=== PATIENT | female | born 1995 | race Caucasian/White ===

== ENCOUNTER 2018-11-13 14:04 | Emergency (ER) | payer MEDICAID ==
[~2018-11-13] VITALS: Ht 152.4 cm; Wt 88.0 kg
[2018-11-13 14:28] VITALS: BP 130/81
== END 2018-11-13 17:50 | disposition left against medical advice (07) ==
LOC: ER 14:24
DX: R10.9 Unspecified abdominal pain (principal); Z53.21 Procedure and treatment not carried out due to patient leaving prior to being seen by health care provider

== ENCOUNTER 2020-03-03 16:14 | Emergency (ER) | payer MEDICAID ==
[~2020-03-03] VITALS: Ht 147.3 cm; Wt 82.0 kg
[2020-03-03] MEDS ORDERED: PREDNISONE 20MG TABLET PO STA (16:19)
[2020-03-03] MEDS ORDERED: IPRATROPIUM BROMIDE (0.02%) 0.5MG/2.5ML NEB HHN STA (16:19)
[2020-03-03] MEDS ORDERED: ALBUTEROL (0.083%) 2.5MG/3ML NEB HHN STA (16:19)
[2020-03-03 19:00] VITALS: BP 118/67
== END 2020-03-03 19:11 | disposition home or self-care (01) ==
LOC: ER 16:14
DX: J45.901 Unspecified asthma with (acute) exacerbation (principal)
CPT/HCPCS: 71045; 94640; 99283; J7512; Z7610